=== PATIENT | female | born 1950 | race Caucasian/White ===

== ENCOUNTER 2023-02-04 09:45 | Outpatient (AMB) | payer MEDICARE, OTHER, SELFPAY ==
--- NOTE | 2023-02-04 09:50 | HO.NEPHOV ---
HPI HPI Comments History of Present Illness Details I had the privilege of seeing Cindy in follow-up of her mild CKD. She is on metformin for her diabetes mellitus. Her blood pressure has been close to goal. She really had minimal proteinuria in the past. She has no hypoglycemias. She denies any chest pain, shortness of breath, proximal nocturnal dyspnea, orthopnea or pedal edema . She has not had any medication changes lately. She has not had any renal stones lately. She avoids nonsteroidal anti-inflammatory medications. She has no orthostatic symptoms. She has been having increased frequency of micturition. Her serum potassium was 5.5 recently. She had no other systemic complaints at the time of this office visit. [facility] Medical History (Updated 02/04/23 @ 12:53 by Jg Ramírez MD) Calculus of kidney Chronic kidney disease, stage 3a Hypertension Surgical History (Updated 02/04/23 @ 10:05 by Estefany Varela MA) Hx of laparoscopic gastric banding History of ankle surgery History of knee replacement History of section History of elbow surgery History of knee surgery Social History (Updated 02/04/23 @ 10:02 by Estefany Varela MA) Alcohol intake: never Patient Tobacco Use Status: Never used Tobacco Vital Signs 02/04/23 09:54 Height 4 ft 11 in Weight 170 lb 4 oz BMI 34.4 BP 136/80 Blood Pressure Location Lt brachial Position Sitting Pulse 91 Pulse Source Pulse Oximeter Physical Exam Vital Signs: Last Vital Signs Pulse 91 02/04/23 09:54 BP 136/80 02/04/23 09:54 BMI result Body Mass Index 34.4 Const General: comfortable and no acute distress Orientation/consciousness: patient oriented x3 HEENT Head: Yes normocephalic Mouth: Normal oral and palatal mucosa present Eyes EOM: EOMs intact bilaterally Neck Neck: Yes supple Resp Auscultation: clear to auscultation bilaterally Cardio Jugular venous distension: no JVD Rate: regular rate GI Palpation (GI): Soft to palpation Auscultation: normal bowel sounds General: Yes no CVA tenderness Back/Spine/Pelvis Back: no CVA tenderness Skin General skin exam: no rashes or lesions noted Neuro General: patient oriented x3 and moves all extremities Extrem General: Yes no pedal edema Assessment & Plan Assessment & Plan (1) Chronic kidney disease, stage 3a: Code(s): N18.31 - Chronic kidney disease, stage 3a (2) Calculus of kidney: Code(s): N20.0 - Calculus of kidney (3) Hypertension: Code(s): I10 - Essential (primary) hypertension Qualifiers: Hypertension type: primary hypertension Qualified Code(s): I10 - Essential (primary) hypertension (4) UTI (urinary tract infection): Code(s): N39.0 - Urinary tract infection, site not specified (5) Hyperkalemia: Code(s): E87.5 - Hyperkalemia Plan Cindy has CKD stage 3. Her renal functions have been stable. Her serum potassium was 5.5 couple days ago. I asked her to keep a low-potassium diet. She is not on any RUDDY inhibitor, ARB or spironolactone. She is going to get her electrolytes repeated in a few weeks. Her blood pressure needs to be maintained at goal. Her blood sugars are acceptable. She avoids nonsteroidal anti-inflammatory medications and maintain good hydration. I have started her on levofloxacin 500 mg daily for 3 days. I will consider starting her on low-dose chlorthalidone which could potentially help with her hyperkalemia especially given history of renal calculus and hypertension. She should be on a low-sodium diet and continue lifestyle modification. All questions were answered. Time spent retrieving data, patient encounter and documentation 28 minutes. Follow-up given. Orders: Orders Creatinine Today I10 - Essential (primary) hypertension, N18.31 - Chronic kidney disease, stage 3a, N20.0 - Calculus of kidney Electrolytes Today I10 - Essential (primary) hypertension, N18.31 - Chronic kidney disease, stage 3a, N20.0 - Calculus of kidney Blood Urea Nitrogen Today I10 - Essential (primary) hypertension, N18.31 - Chronic kidney disease, stage 3a, N20.0 - Calculus of kidney Calcium Today I10 - Essential (primary) hypertension, N18.31 - Chronic kidney disease, stage 3a, N20.0 - Calculus of kidney Medications: New levofloxacin 500 mg PO DAILY 3 days 3 tabs 0RF Coding Level of Care Code Est Pt Level 4 (55864) Diagnoses Chronic kidney disease, stage 3a N18.31 Calculus of kidney N20.0 Primary hypertension I10 Hypertension type: primary hypertension UTI (urinary tract infection) N39.0 Hyperkalemia E87.5
[2023-02-04 09:54] VITALS: BP 136/80; PULSE 91; BMI 34.4
== END 2023-02-04 10:31 | disposition home or self-care (01) ==
PROVIDERS: PCP Internal Medicine; Visit Provider Internal Medicine Nephrology
DX: N18.31 Chronic kidney disease, stage 3a (principal); N20.0 Calculus of kidney; I10 Essential (primary) hypertension; N39.0 Urinary tract infection, site not specified; E87.5 Hyperkalemia
CPT/HCPCS: 99214

== ENCOUNTER → 2023-02-04 09:45 | Outpatient (BNVA) | payer MEDICARE, OTHER, SELFPAY | PROVIDERS: PCP Internal Medicine; Visit Provider Internal Medicine Nephrology | DX: I12.9 Hypertensive chronic kidney disease with stage 1 through stage 4 chronic kidney disease, or unspecified chronic kidney disease (principal); N18.31 Chronic kidney disease, stage 3a; N20.0 Calculus of kidney; N39.0 Urinary tract infection, site not specified; E78.5 Hyperlipidemia, unspecified | CPT/HCPCS: 99212 ==

== ENCOUNTER 2023-04-30 13:05 | Outpatient (REF) | payer MEDICARE, OTHER, SELFPAY ==
[2023-04-30 17:23] LABS: Appearance Urine Clear; Color Urine Yellow; Glucose Urine UA Negative (Negative); Leukocyte Esterase Urine Small (1+) (Negative); Nitrite Urine Negative (Negative); PH 5.5 (5.0-9.0); Specific Gravity - Urine 1.015 (1.005-1.025); UMIC TRIGGER UA YES; Urine Blood Negative (Negative); Urine Ketones Negative (Negative); Urine Protein Negative (Neg-Trace)
[2023-04-30 17:32] LABS: Anion Gap 12 (12-20); Blood Urea Nitrogen 18 mg/dL (9-16); Carbon Dioxide 27 mmol/L (22-29); Chloride 108 mmol/L (96-108); Estimated Glomerular Filt Rate 40; Potassium 4.7 mmol/L (3.3-5.1); Sodium 142 mmol/L (135-145)
[2023-04-30 18:03] LABS: Bacteria Urine 3+ (None Seen); Hyaline Casts Urine 0-2 /LPF (0-2); RBC Urine 0-2 /HPF (0-2); WBC Urine 21-50 /HPF (0-5)
[2023-04-30 19:39] LABS: Creatinine Urine 95.94 mg/dL; Total Protein Urine Random 10 mg/dL (<12)
== END 2023-04-30 13:06 | disposition home or self-care (01) ==
LOC: HO.HKASLDS 13:05
PROVIDERS: Visit Provider Internal Medicine Nephrology
DX: I12.9 Hypertensive chronic kidney disease with stage 1 through stage 4 chronic kidney disease, or unspecified chronic kidney disease (principal); N18.31 Chronic kidney disease, stage 3a; N20.0 Calculus of kidney
CPT/HCPCS: 36415; 80051; 81001; 82310; 82565; 82570; 84156; 84520

== ENCOUNTER 2023-05-06 09:37 | Outpatient (AMB) | payer MEDICARE, OTHER, SELFPAY ==
[2023-05-06 09:42] VITALS: BP 122/70; PULSE 79; O2SAT 98; BMI 34.6
--- NOTE | 2023-05-06 09:42 | HO.NEPHOV ---
HPI HPI Comments History of Present Illness Details I had the privilege of seeing Cindy in follow-up of her mild CKD. She is on metformin for her diabetes mellitus. Her blood pressure has been close to goal. She really had minimal proteinuria in the past. She has no hypoglycemias. She denies any chest pain, shortness of breath, proximal nocturnal dyspnea, orthopnea or pedal edema . She has not had any medication changes lately. She has not had any renal stones lately. She avoids nonsteroidal anti-inflammatory medications. She has no orthostatic symptoms. She had no other systemic complaints at the time of this office visit [facility] Medical History (Updated 05/06/23 @ 10:01 by Jg Ramírez MD) Calculus of kidney Chronic kidney disease, stage 3a Hypertension Surgical History (Updated 02/04/23 @ 10:05 by Estefany Varela MA) Hx of laparoscopic gastric banding History of ankle surgery History of knee replacement History of section History of elbow surgery History of knee surgery Social History (Updated 02/04/23 @ 10:02 by Estefany Varela MA) Alcohol intake: never Patient Tobacco Use Status: Never used Tobacco Vital Signs 05/06/23 09:42 Height 4 ft 11 in Weight 171 lb 8 oz BMI 34.6 BP 122/70 Blood Pressure Location Lt brachial Position Sitting Pulse 79 Pulse Source Pulse Oximeter Pulse Oximetry (%) 98 Oxygen Delivery Method Room Air Physical Exam Const General: comfortable and no acute distress Orientation/consciousness: patient oriented x3 HEENT Head: Yes normocephalic Mouth: Normal oral and palatal mucosa present Eyes EOM: EOMs intact bilaterally Neck Neck: Yes supple Resp Auscultation: clear to auscultation bilaterally Cardio Jugular venous distension: no JVD Rate: regular rate GI Palpation (GI): Soft to palpation Auscultation: normal bowel sounds General: Yes no CVA tenderness Back/Spine/Pelvis Back: no CVA tenderness Skin General skin exam: no rashes or lesions noted Neuro General: patient oriented x3 and moves all extremities Extrem General: Yes no pedal edema Assessment & Plan Assessment & Plan (1) Chronic kidney disease, stage 3a: Code(s): N18.31 - Chronic kidney disease, stage 3a (2) Hypertension: Code(s): I10 - Essential (primary) hypertension Qualifiers: Hypertension type: primary hypertension Qualified Code(s): I10 - Essential (primary) hypertension (3) Calculus of kidney: Code(s): N20.0 - Calculus of kidney (4) Diabetes: Code(s): E11.9 - Type 2 diabetes mellitus without complications Plan Cindy has CKD stage 3. Her renal functions have been stable. Her serum potassium is normal. I asked her to keep a low-potassium diet. She is not on any RUDDY inhibitor, ARB or spironolactone. Her blood pressure needs to be maintained at goal. Her blood sugars are acceptable. She avoids nonsteroidal anti-inflammatory medications and maintain good hydration. Her last A1c was 6.2. I will consider starting her on low-dose chlorthalidone along with low dose of ACEI at next visit which could potentially help with her hyperkalemia especially given history of renal calculus and hypertension & renal protection. She should be on a low-sodium diet and continue lifestyle modification. All questions were answered. Orders: Orders Creatinine Today I10 - Essential (primary) hypertension, N18.31 - Chronic kidney disease, stage 3a, N20.0 - Calculus of kidney Blood Urea Nitrogen Today I10 - Essential (primary) hypertension, N18.31 - Chronic kidney disease, stage 3a, N20.0 - Calculus of kidney Electrolytes Today I10 - Essential (primary) hypertension, N18.31 - Chronic kidney disease, stage 3a, N20.0 - Calculus of kidney Protein Creatinine Ratio, Ur Today I10 - Essential (primary) hypertension, N18.31 - Chronic kidney disease, stage 3a, N20.0 - Calculus of kidney Hemoglobin A1c Today E11.9 - Type 2 diabetes mellitus without complications, I10 - Essential (primary) hypertension, N18.31 - Chronic kidney disease, stage 3a, N20.0 - Calculus of kidney Coding Level of Care Code Est Pt Level 3 (05596) Diagnoses Chronic kidney disease, stage 3a N18.31 Primary hypertension I10 Hypertension type: primary hypertension Calculus of kidney N20.0 Diabetes E11.9 Results Reviewed Nephrology Results: Sodium 142 mmol/L (135-145) 04/30/23 Potassium 4.7 mmol/L (3.3-5.1) 04/30/23 Chloride 108 mmol/L (96-108) 04/30/23 Carbon Dioxide 27 mmol/L (22-29) 04/30/23 BUN 18 mg/dL (9-16) H 04/30/23 Creatinine 1.29 mg/dL (0.5-1.4) 04/30/23 Calcium 10.0 mg/dL (8.4-10.2) 04/30/23 Urine Protein Negative mg/dL (Neg-Trace) 04/30/23 Urine Creatinine 95.94 mg/dL 04/30/23 Protein/Creatinin Ratio 0.10 (<0.2) 04/30/23
== END 2023-05-06 10:08 | disposition home or self-care (01) ==
PROVIDERS: PCP Internal Medicine; Visit Provider Internal Medicine Nephrology
DX: N18.31 Chronic kidney disease, stage 3a (principal); I10 Essential (primary) hypertension; N20.0 Calculus of kidney; E11.9 Type 2 diabetes mellitus without complications
CPT/HCPCS: 99213

== ENCOUNTER → 2023-05-06 09:37 | Outpatient (BNVA) | payer MEDICARE, OTHER, SELFPAY | PROVIDERS: PCP Internal Medicine; Visit Provider Internal Medicine Nephrology | DX: E11.22 Type 2 diabetes mellitus with diabetic chronic kidney disease (principal); I12.9 Hypertensive chronic kidney disease with stage 1 through stage 4 chronic kidney disease, or unspecified chronic kidney disease; N18.31 Chronic kidney disease, stage 3a; N20.0 Calculus of kidney; Z79.84 Long term (current) use of oral hypoglycemic drugs | CPT/HCPCS: 99212 ==

== ENCOUNTER 2023-08-29 09:18 | Outpatient (REF) | payer MEDICARE, OTHER, SELFPAY ==
[2023-08-29 11:39] LABS: Estimated Average Glucose 128 mg/dL; Hemoglobin A1c % 6.1 % (<6.0)
[2023-08-29 12:15] LABS: Anion Gap 12 (12-20); Blood Urea Nitrogen 16 mg/dL (9-16); Carbon Dioxide 27 mmol/L (22-29); Chloride 107 mmol/L (96-108); Estimated Glomerular Filt Rate 43; Potassium 5.1 mmol/L (3.3-5.1); Sodium 141 mmol/L (135-145)
[2023-08-29 13:13] LABS: Appearance Urine Clear; Color Urine Yellow; Glucose Urine UA Negative (Negative); Leukocyte Esterase Urine Small (1+) (Negative); Nitrite Urine Negative (Negative); PH 5.5 (5.0-9.0); UMIC TRIGGER UA YES; Urine Blood Trace (Negative); Urine Ketones Negative (Negative); Urine Protein Negative (Neg-Trace)
[2023-08-29 13:18] LABS: Bacteria Urine None Seen (None Seen); Hyaline Casts Urine 0-2 /LPF (0-2); RBC Urine 0-2 /HPF (0-2)
[2023-08-29 13:50] LABS: Creatinine Urine 117.72 mg/dL; Protein/Creatinine Ratio, Ur 0.13 (<0.2); Total Protein Urine Random 15 mg/dL (<12)
== END 2023-08-29 09:19 | disposition home or self-care (01) ==
LOC: HO.HMGCLDS 09:18
PROVIDERS: PCP Internal Medicine; Visit Provider Internal Medicine Nephrology
DX: I12.9 Hypertensive chronic kidney disease with stage 1 through stage 4 chronic kidney disease, or unspecified chronic kidney disease (principal); E11.9 Type 2 diabetes mellitus without complications; N20.0 Calculus of kidney; N18.31 Chronic kidney disease, stage 3a
CPT/HCPCS: 36415; 80051; 81001; 82565; 82570; 83036; 84156; 84520

== ENCOUNTER 2023-09-02 09:48 | Outpatient (AMB) | payer MEDICARE, OTHER, SELFPAY ==
[2023-09-02 10:11] VITALS: BP 116/72; PULSE 75; O2SAT 98; BMI 34.0
--- NOTE | 2023-09-02 10:11 | HO.NEPHOV ---
Vital Signs 09/02/23 10:11 Height 4 ft 11 in Weight 168 lb 2 oz BMI 34.0 BP 116/72 Blood Pressure Location Lt brachial Position Sitting Pulse 75 Pulse Source Pulse Oximeter Pulse Oximetry (%) 98 Oxygen Delivery Method Room Air Intake Visit Reasons: 4 mon follow up/ Conf w/ Security Trainer Required: No Accompanied by: Self / Same As Patient Allergies No Known Allergies Allergy (Verified 09/02/23 10:14) HPI Comments Details: I had the privilege of seeing Cindy in follow-up of her mild CKD. She is on metformin for her diabetes mellitus. Her blood pressure has been close to goal. She really had minimal proteinuria in the past. She has no hypoglycemias. She denies any chest pain, shortness of breath, proximal nocturnal dyspnea, orthopnea or pedal edema . She has not had any medication changes lately. She has not had any renal stones lately. She avoids nonsteroidal anti-inflammatory medications. She has no orthostatic symptoms. She is under a lot of stress from her 's recent diagnosis of head and neck cancer( squamous cell ca). She had no other systemic complaints at the time of this office visit [facility] Medical History (Updated 05/06/23 @ 10:01 by Jg Ramírez MD) Calculus of kidney Chronic kidney disease, stage 3a Hypertension Surgical History Hx of laparoscopic gastric banding History of ankle surgery History of knee replacement History of section History of elbow surgery History of knee surgery Social History Alcohol intake: never Patient Tobacco Use Status: Never used Tobacco Physical Exam Vital Signs: Last Vital Signs Pulse 75 09/02/23 10:11 BP 116/72 09/02/23 10:11 Pulse Ox 98 09/02/23 10:11 Oxygen Delivery Method Room Air 09/02/23 10:11 BMI result Body Mass Index 34.0 Const General: comfortable and no acute distress Orientation/consciousness: patient oriented x3 HEENT Head: Yes normocephalic Mouth: Normal oral and palatal mucosa present Eyes EOM: EOMs intact bilaterally Neck Neck: Yes supple Resp Auscultation: clear to auscultation bilaterally Cardio Jugular venous distension: no JVD Rate: regular rate GI Palpation (GI): Soft to palpation Auscultation: normal bowel sounds General: Yes no CVA tenderness Back/Spine/Pelvis Back: no CVA tenderness Skin General skin exam: no rashes or lesions noted Neuro General: patient oriented x3 and moves all extremities Extrem General: Yes no pedal edema Results Reviewed Nephrology Results: Sodium 141 mmol/L (135-145) 08/29/23 Potassium 5.1 mmol/L (3.3-5.1) 08/29/23 Chloride 107 mmol/L (96-108) 08/29/23 Carbon Dioxide 27 mmol/L (22-29) 08/29/23 BUN 16 mg/dL (9-16) 08/29/23 Creatinine 1.21 mg/dL (0.5-1.4) 08/29/23 Calcium 10.0 mg/dL (8.4-10.2) 04/30/23 Urine Protein Negative mg/dL (Neg-Trace) 08/29/23 Urine Creatinine 117.72 mg/dL 08/29/23 Protein/Creatinin Ratio 0.13 (<0.2) 08/29/23 Assessment & Plan Assessment & Plan (1) Calculus of kidney: Code(s): N20.0 - Calculus of kidney Category: Medical (2) Chronic kidney disease, stage 3a: Code(s): N18.31 - Chronic kidney disease, stage 3a Category: Medical (3) Hypertension: Code(s): I10 - Essential (primary) hypertension Category: Medical Qualifiers: Hypertension type: primary hypertension Qualified Code(s): I10 - Essential (primary) hypertension Plan Cindy has CKD stage 3. Her renal functions have been stable. Her serum potassium is normal. I asked her to keep a low-potassium diet. She is not on any RUDDY inhibitor, ARB or spironolactone. Her blood pressure needs to be maintained at goal. Her blood sugars are acceptable. She avoids nonsteroidal anti-inflammatory medications and maintain good hydration. Her last A1c was 6.3. I did not make any medication changes today. She should be on a low-sodium diet and continue lifestyle modification. All questions were answered. Orders: Orders Blood Urea Nitrogen Today I10 - Essential (primary) hypertension, N18.31 - Chronic kidney disease, stage 3a, N20.0 - Calculus of kidney Electrolytes Today I10 - Essential (primary) hypertension, N18.31 - Chronic kidney disease, stage 3a, N20.0 - Calculus of kidney Calcium Today I10 - Essential (primary) hypertension, N18.31 - Chronic kidney disease, stage 3a, N20.0 - Calculus of kidney Creatinine Today I10 - Essential (primary) hypertension, N18.31 - Chronic kidney disease, stage 3a, N20.0 - Calculus of kidney Coding Level of Care Code Est Pt Level 4 (31680) Diagnoses Calculus of kidney N20.0 Chronic kidney disease, stage 3a N18.31 Primary hypertension I10 Hypertension type: primary hypertension
== END 2023-09-02 10:42 | disposition home or self-care (01) ==
PROVIDERS: PCP Internal Medicine; Visit Provider Internal Medicine Nephrology
DX: N20.0 Calculus of kidney (principal); N18.31 Chronic kidney disease, stage 3a; I10 Essential (primary) hypertension
CPT/HCPCS: 99214

== ENCOUNTER → 2023-09-02 09:48 | Outpatient (BNVA) | payer MEDICARE, OTHER, SELFPAY | PROVIDERS: PCP Internal Medicine; Visit Provider Internal Medicine Nephrology | DX: N20.0 Calculus of kidney (principal); I12.9 Hypertensive chronic kidney disease with stage 1 through stage 4 chronic kidney disease, or unspecified chronic kidney disease; N18.31 Chronic kidney disease, stage 3a | CPT/HCPCS: 99212 ==

== ENCOUNTER 2023-12-30 10:20 | Outpatient (REF) | payer MEDICARE, OTHER, SELFPAY ==
[2023-12-30 13:37] LABS: Appearance Urine Clear; Color Urine Yellow; Glucose Urine UA Negative (Negative); Leukocyte Esterase Urine Small (1+) (Negative); Nitrite Urine Positive (Negative); PH 5.5 (5.0-9.0); UMIC TRIGGER UA YES; Urine Blood Negative (Negative); Urine Ketones Negative (Negative); Urine Protein Trace mg/dL (Neg-Trace)
[2023-12-30 13:43] LABS: Bacteria Urine 4+ (None Seen); Hyaline Casts Urine 0-2 /LPF (0-2); RBC Urine 0-2 /HPF (0-2); WBC Urine 21-50 /HPF (0-5)
[2023-12-30 19:32] LABS: Anion Gap 14 (12-20); Blood Urea Nitrogen 15 mg/dL (9-16); Calcium 10.1 mg/dL (8.4-10.2); Carbon Dioxide 27 mmol/L (22-29); Chloride 106 mmol/L (96-108); Estimated Glomerular Filt Rate 41; Potassium 5.1 mmol/L (3.3-5.1); Sodium 142 mmol/L (135-145)
== END 2023-12-30 10:21 | disposition home or self-care (01) ==
LOC: HO.HKASLDS 10:20
PROVIDERS: Visit Provider Internal Medicine Nephrology
DX: N18.31 Chronic kidney disease, stage 3a (principal); N20.0 Calculus of kidney; I10 Essential (primary) hypertension
CPT/HCPCS: 36415; 80051; 81001; 82310; 82565; 84520

== ENCOUNTER 2024-01-06 10:04 | Outpatient (AMB) | payer MEDICARE, OTHER, SELFPAY ==
[2024-01-06 10:11] VITALS: BP 114/64; PULSE 69; O2SAT 98; BMI 32.8
--- NOTE | 2024-01-06 10:11 | HO.NEPHOV ---
Vital Signs 01/06/24 10:11 Height 4 ft 11 in Weight 162 lb 4 oz BMI 32.8 BP 114/64 Blood Pressure Location Lt brachial Position Sitting Pulse 69 Pulse Source Pulse Oximeter Pulse Oximetry (%) 98 Oxygen Delivery Method Room Air Intake Visit Reasons: 4 mon follow up-Conf Adjunct Sociology Professor Required: No Accompanied by: Self / Same As Patient Allergies No Known Allergies Allergy (Verified 01/06/24 10:13) HPI Comments Details: I had the privilege of seeing Cindy in follow-up of her mild CKD. She is grieving from her husbands passing. She is on metformin for her diabetes mellitus. Her blood pressure has been close to goal. She really had minimal proteinuria in the past. She has no hypoglycemias. She denies any chest pain, shortness of breath, proximal nocturnal dyspnea, orthopnea or pedal edema . She has not had any medication changes lately. She has not had any renal stones lately. She avoids nonsteroidal anti-inflammatory medications. She has no orthostatic symptoms. She had no other systemic complaints at the time of this office visit [facility] Medical History (Updated 05/06/23 @ 10:01 by Jg Ramírez MD) Calculus of kidney Chronic kidney disease, stage 3a Hypertension Surgical History Hx of laparoscopic gastric banding History of ankle surgery History of knee replacement History of section History of elbow surgery History of knee surgery Social History Alcohol intake: never Patient Tobacco Use Status: Never used Tobacco Review of Systems Const All systems reviewed & are unremarkable except as noted in HPI and below Physical Exam Vital Signs: Last Vital Signs Pulse 69 01/06/24 10:11 BP 114/64 01/06/24 10:11 Pulse Ox 98 01/06/24 10:11 Oxygen Delivery Method Room Air 01/06/24 10:11 BMI result Body Mass Index 32.8 Const General: comfortable and no acute distress Orientation/consciousness: patient oriented x3 HEENT Head: Yes normocephalic Mouth: Normal oral and palatal mucosa present Eyes EOM: EOMs intact bilaterally Neck Neck: Yes supple Resp Auscultation: clear to auscultation bilaterally Cardio Jugular venous distension: no JVD Rate: regular rate GI Palpation (GI): Soft to palpation Auscultation: normal bowel sounds General: Yes no CVA tenderness Back/Spine/Pelvis Back: no CVA tenderness Skin General skin exam: no rashes or lesions noted Neuro General: patient oriented x3 and moves all extremities Extrem General: Yes no pedal edema Results Reviewed Nephrology Results: Sodium 142 mmol/L (135-145) 12/30/23 Potassium 5.1 mmol/L (3.3-5.1) 12/30/23 Chloride 106 mmol/L (96-108) 12/30/23 Carbon Dioxide 27 mmol/L (22-29) 12/30/23 BUN 15 mg/dL (9-16) 12/30/23 Creatinine 1.28 mg/dL (0.5-1.4) 12/30/23 Calcium 10.1 mg/dL (8.4-10.2) 12/30/23 Urine Protein Trace mg/dL (Neg-Trace) 12/30/23 Urine Creatinine 117.72 mg/dL 08/29/23 Protein/Creatinin Ratio 0.13 (<0.2) 08/29/23 Assessment & Plan Assessment & Plan (1) Chronic kidney disease, stage 3a: Code(s): N18.31 - Chronic kidney disease, stage 3a Category: Medical (2) Hypertension: Code(s): I10 - Essential (primary) hypertension Category: Medical Qualifiers: Hypertension type: primary hypertension Qualified Code(s): I10 - Essential (primary) hypertension (3) Calculus of kidney: Code(s): N20.0 - Calculus of kidney Category: Medical Plan Cindy has CKD stage 3. Her renal functions have been stable. Her serum potassium is normal. I asked her to keep a low-potassium diet. She is not on any RUDDY inhibitor, ARB or spironolactone. Her blood pressure needs to be maintained at goal. Her blood sugars are acceptable. She avoids nonsteroidal anti-inflammatory medications and maintain good hydration. I did not make any medication changes today. She should be on a low-sodium diet and continue lifestyle modification. All questions were answered. Orders: Orders Creatinine 6 Months I10 - Essential (primary) hypertension, N18.31 - Chronic kidney disease, stage 3a Blood Urea Nitrogen 6 Months I10 - Essential (primary) hypertension, N18.31 - Chronic kidney disease, stage 3a Electrolytes 6 Months I10 - Essential (primary) hypertension, N18.31 - Chronic kidney disease, stage 3a Coding Level of Care Code Est Pt Level 4 (13908) Diagnoses Chronic kidney disease, stage 3a N18.31 Primary hypertension I10 Hypertension type: primary hypertension Calculus of kidney N20.0
== END 2024-01-06 10:54 | disposition home or self-care (01) ==
LOC: HO.HKAS 10:05
PROVIDERS: PCP Internal Medicine; Visit Provider Internal Medicine Nephrology
DX: N18.31 Chronic kidney disease, stage 3a (principal); I10 Essential (primary) hypertension; N20.0 Calculus of kidney
CPT/HCPCS: 99214

== ENCOUNTER → 2024-01-06 10:04 | Outpatient (BNVA) | payer MEDICARE, OTHER, SELFPAY | PROVIDERS: PCP Internal Medicine; Visit Provider Internal Medicine Nephrology | DX: I12.9 Hypertensive chronic kidney disease with stage 1 through stage 4 chronic kidney disease, or unspecified chronic kidney disease (principal); N18.31 Chronic kidney disease, stage 3a; N20.0 Calculus of kidney | CPT/HCPCS: 99212 ==

== ENCOUNTER 2024-06-30 10:30 | Outpatient (REF) | payer MEDICARE, SELFPAY ==
--- OUTSIDE RECORDS SUMMARY | 2024-06-30 12:25 | XMS_ITS | Clinical Summary ---
Author Organization [facility] Address [address] [place] [address] Care Team Providers Care Systems Project Manager Name Role Phone Moe Gao MD Primary Care Provider [phone] Allergies No known active allergies Medications Medication Sig Dispensed Refills Start Date End Date Status atorvastatin (LIPITOR) tablet 10 mg Take 1 tablet (10 mg total) by mouth daily. 0 04/27/2022 Active levothyroxine (SYNTHROID) tablet 100 mcg Take 1 tablet (100 mcg total) by mouth daily. 0 06/06/2022 Active metFORMIN (GLUCOPHAGE-XR) 750 MG 24 hr tablet Take 1 tablet (750 mg total) by mouth daily. 0 05/15/2022 Active Active Problems No known active problems Family History Medical History Relation Name Comments Cancer Mother Relation Name Status Comments Mother Social History Tobacco Use Types Packs/Day Years Used Date Smoking Tobacco: Never Smokeless Tobacco: Never Tobacco Cessation:Counseling Given: Not Answered Alcohol Use Standard Drinks/Week Comments Never 0 (1 standard drink = 0.6 oz pur e alcohol) Sex and Gender Information Value Date Recorded Sex Assigned at Female 04/26/2022 11:35 AM EST Gender Identity Not on file Sexual Orientation Not on file Job Start Date Occupation Industry Not on file Not on file Not on file Last Filed Vital Signs Vital Sign Reading Time Taken Comments Blood Pressure 128/61 07/19/2022 3:18 PM EDT Pulse 95 07/19/2022 3:18 PM EDT Temperature 37 ??C (98.6 ??F) 07/19/2022 3:18 PM EDT Respiratory Rate - - Oxygen Saturation 99% 07/19/2022 3:18 PM EDT Inhaled Oxygen Concentration - - Weight 77.7 kg (171 lb 6.4 oz) 07/19/2022 3:18 P M EDT Height 149.9 cm (4' 11 ) 07/19/2022 3:18 PM EDT Body Mass Index 34.62 07/19/2022 3:18 PM EDT Plan of Treatment Health Maintenance Due Date Last Done Comments Hepatitis C Screening 1950 COVID-19 Vaccine (#1) 1948 Depression Screening 1960 Preventative Health Evaluation 1966 Shingrix-Zoster Vaccine (1 of 2) 1998 Fall Risk Assessment 2013 Osteoporosis Screening (DEXA Scan) 2013 Pneumococcal Vaccine (1 of 1 - PCV) 2013 DTap / Tdap / Td (2 - Td or Tdap) 10/19/2021 012 RSV Adult > 60+ Yrs or Pregn ant (1 - 1-dose 75+ series) 2023 Influenza Vaccine (#1) 2023 Hepatitis B Vaccines Aged Out No long er eligible based on patient's age to complete this topic RSV Ped < 20 months Aged Out No longe r eligible based on patient's age to complete this topic Care Teams Systems Project Manager Relationship Specialty Start Date End Date Moe Gao MD [address] [facility] [address] [place] [address] PCP - General Internal Medicine 04/26/22
--- OUTSIDE RECORDS SUMMARY | 2024-06-30 12:25 | XMS_ITS | Encounter Summary ---
Author Name [facility] [place] Organization [facility] [place] [place] Address [address] [place] [id number] Selected Encounter This section includes the information on record at [place] for the Encounter. Date/Time Encounter Type Encounter Description Reason Pro vider Source Oct 22, 2023 02:07 PM Outpatient Encounter ADMIN PAT ACTIVTIES (MASNONCT) IHE Encounter Template Text not used by VA Encounter Notes: All associated encounter notes This section contains the clinical notes associated to the Encounter. Date/Time Encounter Note(s) Provider Source Oct 22, 2023 02:08 PM CAREGIVER CERTIFIC ATE: LOCAL TITLE: [facility] ADMINISTRATIVE NOTE STANDARD TITLE: CAREGIVER CERTIFICATE DATE OF NOTE: OCT 22, 2023@14:08 ENTRY DATE: OCT 22, 2023@14:08:04 AUTHOR: ALEXANDRIA BADILLO COSIGNER: URGENCY: STATUS: COMPLETED Mechanical Engineering Officer received a call from this 's daughter/secondary caregiver listed in the CSP PCAFC application. Mechanical Engineering Officer introduced herself and discussed the next step required with their CSP PCAFC application. Mechanical Engineering Officer noted already scheduled an appointment with vet and primary caregiver/'s on 10/24/23 at 1pm via telephone to complete the CSP PCAFC and caregiver assessment. [place]'s daughter/secondary caregiver agreed to be present during this assessment and noted she can facilitate [facility] V[facility]. Mechanical Engineering Officer agreed to send her the [facility] email invitation for the above mentioned appt to her provided email [email or web address]. Mechanical Engineering Officer also forwarded this 's daughter/secondary caregiver the instructions for EFT direct deposit to this 's daughter/caregiver. She agreed to provide her mother/'s primary caregiver support with this EFT direct deposit process. /florina/ ALEXANDRIA CORBETT LCSW CAREGIVER SUPPORT GROUNDS AND NURSERY SPECIALIST Signed: 10/22/2023 14:08 ALEXANDRIA BADILLO [facility]
--- OUTSIDE RECORDS SUMMARY | 2024-06-30 12:25 | XMS_ITS | Continuity of Care Document ---
Author Name [facility] Organization [facility] Care Team Providers Care Pension Fund Manager Name Role Phone [facility] Unavailable Unavailable Problems Combined list of problems [...] HCS HC PRO PHONE CALL 5-10 MIN [id number] Diagnos is: ICD-10- CM Z71.0 Prsn encntr hlth serv to consult on behalf of another person MARGI BADILLO TH E 10/21 [facility] Encounter [id number] 10/21 [facility] Encounter [id number] 10/22 [facility] [place]REAS SESSMENT [id number] Diagnos is: ICD-10- CM Z71.0 Prsn encntr hlth serv to consult on behalf of another person JUSTINORU TH E 10/23 [facility] [place] [facility] Outpatient Encounter [id number] 11/03 [facility]
--- OUTSIDE RECORDS SUMMARY | 2024-06-30 12:25 | XMS_ITS ---
Author Name [facility] [place] Organization [facility] [place] Address [address] [place], [place] [id number] Selected Encounter This section includes the information on record at [place] for the Encounter. Date/Time Encounter Type Encounter Description Reason Pro vider Source Oct 23, 2023 07:20 AM Outpatient Encounter ADMIN PAT ACTIVTIES (MASNONCT) IHE Encounter Template Text not used by VA Encounter Notes: All associated encounter notes This section contains the clinical notes associated to the Encounter. Date/Time Encounter Note(s) Provider Source Oct 23, 2023 07:20 AM CAREGIVER CERTIFIC ATE: LOCAL TITLE: CSP ADMINISTRATIVE NOTE STANDARD TITLE: CAREGIVER CERTIFICATE DATE OF NOTE: OCT 23, 2023@07:20 ENTRY DATE: OCT 23, 2023@11:09:33 AUTHOR: ALEXANDRIA BADILLO EXP COSIGNER: URGENCY: STATUS: COMPLETED Occupational Therapist'S Assistant had email communication with secondary caregiver/'s daughter. She reviewed her contracted COVID therefore she can not be present with and his /primary caregiver during the CSP PCAFC and Caregivers' assessment. Occupational Therapist'S Assistant and secondary caregiver/'s daughter agreed on 10/24/23 production underwriter will meet with her at 12pm via [facility] for a CSP PCAFC secondary caregiver assessment and production underwriter will contact this and via phone at 1pm to complete a CSP PCAFC and caregiver assessment. /florina/ ALEXANDRIA CORBETT LCSW CAREGIVER SUPPORT MANAGED CARE MANAGER Signed: 10/23/2023 11:12 ALEXANDRIA BADILLO [place] [facility] [place] [facility]
--- OUTSIDE RECORDS SUMMARY | 2024-06-30 12:25 | XMS_ITS | Clinical Summary ---
Author Organization [facility] Address [address] [facility] [address] [place] [address] Phone Care Team Providers Care X Ray Inspector Name Role Phone Moe Gao MD Primary Care Provider Allergies No known active allergies Medications fluticasone-salm eterol (ADVAIR DISKUS) 250-50 MCG/DOSE diskus inhaler Active metFORMIN XR (GLUCOPHAGE-XR) 750 MG 24 hr tablet Take 750 mg by mouth 1 (one) time each day 02/22/2020 Active aspirin (ST SIMON) 81 MG EC tablet Take 81 mg by mouth 1 (one) time each day Active cholecalciferol (VITAMIN D-3 SUPER STRENGTH) 50 MCG (2000 UT) tablet Take 2,000 Units by mouth 1 (one) time each day Active atorvastatin (LIPITOR) 10 MG tablet Take 10 mg by mouth 1 (one) time each day 01/28/2022 Active levothyroxine (SYNTHROID, LEVOTHROID) 100 MCG tablet Take 100 mcg by mouth 1 (one) time each day 06/06/2022 Active Active Problems Problem Noted Date Diagnosed Date Degenerative lumbar spinal stenosis 02/04/2022 Stage 3a chronic kidney disease 06/14/2021 Hypertension 11/16/2020 Acute nontraumatic kidney injury 05/06/2020 Chronic kidney disease stage 2 05/06/2020 Hypercalcemia 05/06/2020 Renal function tests outside reference range Renal stone 05/06/2020 Immunizations Immunization Administration Dates Next Due Tdap 10/20/2011 Family History Medical History Relation Comments Cancer Father pancreatic cance r Diabetes Father Heart disease Father pacemaker Hypertension Father Cancer Mother breast cancer Heart disease Sibling Relation Status Comments Father Mother Sibling Social History Tobacco Use Types Packs/Day Years Used Date Smoking Tobacco: Never Smokeless Tobacco: Never Tobacco Cessation:Counseling Given: Not Answered Alcohol Use Standard Drinks/Week Comments No 0 (1 standard drink = 0.6 oz pur e alcohol) Comments Unknown Sex and Gender Information Value Date Recorded Sex Assigned at Not on file Legal Sex Female 4:40 PM EST Gender Identity Not on file Sexual Orientation Not on file Last Filed Vital Signs Vital Sign Reading Time Taken Comments Blood Pressure 130/70 08/06/2022 1:13 PM EDT Pulse 91 08/06/2022 1:13 PM EDT Temperature - - Respiratory Rate - - Oxygen Saturation 98% 11/16/2020 3:12 PM EDT Inhaled Oxygen Concentration - - Weight 77.5 kg (170 lb 12.8 oz) 08/06/2022 1:13 PM EDT Height 149.9 cm (4' 11 ) 07/26/2019 12: 00 PM EDT Body Mass Index 34.5 07/26/2019 12:00 PM EDT Plan of Treatment Health Maintenance Due Date Last Done Comments Pneumococcal Vaccine: 50+ Ye ars (1 of 2 - PCV) 1969 Influenza Vaccine (Season Ended) 2024 Hepatitis B Vaccine Aged Out No longe r eligible based on patient's age to complete this topic Insurance Medicare [facility] Medicare Care Teams X Ray Inspector Relationship Specialty Start Date End Date Moe Gao MD [address] [place] [address] PCP - General 03/20/20
--- OUTSIDE RECORDS SUMMARY | 2024-06-30 12:25 | XMS_ITS ---
Author Name [facility] [place] Organization [facility] [place] [place] Address [address] [place] [address] Selected Encounter This section includes the information on record at [place] for the Encounter. Date/Time Encounter Type Encounter Description Reason Pro vider Source Nov 04, 2023 01:45 PM Outpatient Encounter ADMIN PAT ACTIVTIES (MASNONCT) IHE Encounter Template Text not used by VA Encounter Notes: All associated encounter notes This section contains the clinical notes associated to the Encounter. Date/Time Encounter Note(s) Provider Source Nov 04, 2023 01:45 PM CAREGIVER CERTIFIC ATE: LOCAL TITLE: CSP DENIAL NOTE STANDARD TITLE: CAREGIVER CERTIFICATE DATE OF NOTE: NOV 04, 2023@13:45 ENTRY DATE: NOV 04, 2023@13:48:04 AUTHOR: ALEXANDRIA BADILLO COSIGNER: URGENCY: STATUS: COMPLETED CSP DENIAL NOTE Has ADDENDA Caregiver Support Program Denial Note The individual being denied from the Program of Comprehensive Assistance for Family Caregivers is the Primary Family Caregiver applicant: CINDY HALL Second Family Caregiver applicant: Virginia Kearney Name of [place]: Bryson Hall Reason(s) for denial: - [place] Denial date: 11/03/2023 Staff provided/attempted verbal notification of denial on: 11/03/2023 Notification letter was mailed on: 11/04/2023 [facility] staff provided the following document(s): - [facility] Seay Contact Information - VA Caregiver Support Program PCAFC Appeal FAQs - [place] Form 10-305 Your Rights to Seek Further Review of PCAFC Decisions [facility] staff provided information on the following resources and supports: - Other VA Services: [facility] Outbound Sales Professional Services [phone] ext [phone] [employer] Grief and Support - [email or web address]://www.caredimensions .org/grief- support/index.cfm [facility] [address] [place] [address] Nica Coronado, Bereavement Counselor w# [phone] c# /florina/ ALEXANDRIA DONAHUE SPORT SHOE SPIKE ASSEMBLER CAREGIVER SUPPORT ENDOCRINOLOGY PHYSICIAN Signed: 11/04/2023 13:51 11/04/2023 ADDENDUM STATUS: COMPLETED Cloth Shrinking Tester mailed caregivers (primary and secondary) as well as 's authorized open claims representative the below mentioned letter. SENT REGULAR MAIL November 04, 2023 CINDY HALL [address], [place] [address] Dear Mrs. Hall: Thank you for your interest in the Program of Comprehensive Assistance for Family Caregivers (PCAFC). The [place] Form 10-10CG, Application for the Program of Comprehensive Assistance for Family Caregivers, you submitted was received by [place] on 10/15/2023. This application identified the following individuals as applying for PCAFC: Applicant: Bryson Hall Primary Family Caregiver Applicant: Cindy Hall Secondary Family Caregiver Applicant: Aleah Porter [place] has been notified of the of [place]. We are saddened to hear of your loss and would like to thank you for the dedicated care and support you provided. We want to express our sincere condolences, and let you know we are thinking of you during this challenging time. WHAT WE DECIDED Due to the of Frank, the evaluation of PCAFC eligibility for each PCAFC applicant is discontinued, and the PCAFC application must be denied. EVIDENCE WE CONSIDERED * [place] Form 10-10CG, Application for the Program of Comprehensive Assistance for Family Caregivers, received by [place] on 10/15/2023. * Cindy Hall's (/primary caregiver) telephone conversation with MOLLY Erazo, CSP PCAFC Coordinator confirming of passing on 11/03/2023. APPLICABLE LAWS AND REGULATIONS The following is a list of the legal and regulatory requirements that may be applicable to the decision being issued. Note: Title 38 of the United States Code (U.S.C.) contains the statues governing VA and Veterans' benefits. Title 38 of the Code of Federal Regulations (C.F.R.) contains the regulations of the Department of Veterans Affairs implementing those statues. The symbol ? means a section within the statue or regulation. Authorities Specific to the Program of Comprehensive Assistance for Family Caregivers * Caregivers and Veterans [facility] Act of 2009, Pub. L. No. 111-163, ?? 101-104, 124 Stat. 1130, 1132-40 * Portillo Tilley III, Darrell Mathew, and Dominic De Leon [place] Maintaining Internal Systems and Strengthening Integrated Outside Networks Act of 2018 (VA MISSION Act of 2018), Pub. L. No. 115-182, Caring for Our Veterans Act of 2017, ?? 161-163, 132 Stat. 1393, 1438-43 * Transparency and Effective Accountability Measures for [place] Caregivers Act (TEAM [place] Caregivers Act), Pub. L. No. 116?278, 134 Stat. 3373 * 38 U.S.C. ? 1720G, Assistance and support services for caregivers * 38 C.F.R. Part 71, Caregivers Benefits and Certain Medical Benefits Offered to Family Members of Veterans * [employer] vs. [place] of Veterans Affairs, 29 F.4th 1320 (Fed. Cir. 2021). On June 01, 2021, the United [place] Court of Appeals for the Federal Circuit struck down VA's definition of need for supervision, protection, or instruction in 38 C.F.R. ? 71.15. As a result, effective June 01, 2021, [place] is required to apply 38 U.S.C. 1720G(a)(2)(C) (ii) and (iii) in place of need for supervision, protection, or instruction where that term is used in 38 C.F.R. Part 71. EXPLANATION OF THE DECISION BEING ISSUED TO YOU (Elements leading to the denial) [facility] eligibility requirements can be found in 38 U.S.C. 1720G, Assistance and Support Services for Caregivers, and in 38 CFR Part 71, Caregivers Benefits and Certain Medical Benefits Offered to Family Members of Veterans. To be eligible for approval and designation of a Family Caregiver, individuals must meet criteria set forth in 38 CFR 71.20. In addition, individuals who apply to be Family Caregivers must complete all necessary eligibility evaluations (along with the or servicemember), education and training, and the initial home-care assessment (along with the or servicemember) (38 CFR 71.25(a)(2)(ii)). Unfortunately, all necessary eligibility evaluations were not completed prior to the [place]'s ; therefore, PCAFC eligibility cannot be determined and PCAFC benefits are not able to be granted. HOW TO OBTAIN OR ACCESS INFORMATION USED IN MAKING THIS DECISION Veterans and caregivers may request access to evidence we used to make our decision. If you utilize [employer], you may be able to access the information in your electronic health records (EHR) that was used in making this determination, through [employer]. Alternatively, you may request information identified in the Evidence We Considered section of this notice, by submitting a signed and completed VA Form 10-5345a, Individuals' Request for a Copy of Their Own Health Information, to the Electric Motor Repair Supervisor at your local [place] medical facility. VA Form 10-5345a can be found at https://www.mt.gov/vaforms /medical/pdf/[facility]%20Form%20 10-5345a%20Fill- revision.pdf. If you have an authorized open claims representative acting on your behalf, documentation of this authority using VA Form 21-22, Appointment of [place] Service Organization as Claimant's Gambreler, or VA Form 21-22a, Appointment of Individual as Claimant's Gambreler, must accompany the request for information. These and other VA forms are available at https://www.mt.gov/find-fo juan j/. WHAT TO DO IF YOU DISAGREE WITH THE DECISION If you disagree with this decision, several options are available to you. These options are described in the enclosed VA Form 10-305, Your Rights to Seek Further Review of Program of Comprehensive Assistance for Family Caregivers (PCAFC) Decisions. For information on the [facility] Clinical Appeals process for PCAFC decisions, please refer to the enclosed [facility] Clinical Review FAQ. WE ARE HERE TO SUPPORT YOU While you are not eligible for PCAFC at this time, you may qualify for other VA benefits, such as Dependency Indemnity Compensation (DIC), or burial benefits. To learn more, visit https://www.va.gov/family- member-benefits/. You may also be eligible for bereavement counseling either through the VA or the community. Please let us know if this is something you would like to pursue. Additionally, we encourage you to consider the following local resources: [facility] Outbound Sales Professional Services [phone] ext [phone] [employer] Grief and Support ? https://www.caredimensions .org/grief- support/index.cfm [facility] ? [facility] [address] [place] [address] Nica Coronado, Bereavement Counselor w# [phone] c# We are thinking of you during this challenging time. On behalf of a grateful nation and the Caregiver Support Program, thank you for your dedication to Bill. IF YOU HAVE QUESTIONS We are here for you. Please contact us if you have any questions about this letter or if there is anything we can do to support you. Please refer to the enclosed document titled Seay Contacts for ways to contact us or visit the Caregiver Support Program's website at www.caregiver.va.gov. Sincerely, Alexandria Donahue LCSW Caregiver Support Instructional Media Services Technician Enclosures: * [facility] Seay Contact Sheet * [place] Form 10-292, Your Rights to Seek Further Review of Program of Comprehensive Assistance for Family Caregivers (PCAFC) Decisions. * [facility] Clinical Review FAQ cc: Aleah Porter, [address] [place] [address] cc: [facility], [address], [address], [place] [id number] /florina/ ALEXANDRIA DONAHUE LCSW CAREGIVER SUPPORT ENDOCRINOLOGY PHYSICIAN Signed: 11/04/2023 14:14 ALEXANDRIA BADILLO [facility]
[2024-06-30 18:09] LABS: Anion Gap 14 (12-20); Blood Urea Nitrogen 19 mg/dL (9-16); Carbon Dioxide 24 mmol/L (22-29); Chloride 108 mmol/L (96-108); Estimated Glomerular Filt Rate 42; Potassium 5.4 mmol/L (3.3-5.1); Sodium 141 mmol/L (135-145)
== END 2024-06-30 10:31 | disposition home or self-care (01) ==
LOC: HO.HKASLDS 10:30
PROVIDERS: Visit Provider Internal Medicine Nephrology
DX: N18.31 Chronic kidney disease, stage 3a (principal); I10 Essential (primary) hypertension
CPT/HCPCS: 36415; 80051; 82565; 84520

== ENCOUNTER 2024-07-06 10:28 | Outpatient (AMB) | payer MEDICARE, OTHER, SELFPAY ==
--- NOTE | 2024-07-06 10:31 | HO.NEPHOV ---
Vital Signs 07/06/24 10:34 Height 4 ft 11 in Weight 167 lb 6 oz BMI 33.8 BP 120/60 Blood Pressure Location Lt brachial Position Sitting Pulse 75 Pulse Source Pulse Oximeter Pulse Oximetry (%) 99 Oxygen Delivery Method Room Air Intake Visit Reasons: 4 mon follow up-[facility] Logistics Supply Officer Required: No Accompanied by: Self / Same As Patient Allergies No Known Allergies Allergy (Verified 07/06/24 10:33) HPI Comments Details: Cindy was seen in follow-up of her mild CKD. She is grieving from her husbands passing. She is on metformin for her diabetes mellitus. Her blood pressure has been close to goal. She really had minimal proteinuria in the past. She has no hypoglycemias. She denies any chest pain, shortness of breath, proximal nocturnal dyspnea, orthopnea or pedal edema . She has not had any medication changes lately. She has not had any renal stones lately. She avoids nonsteroidal anti-inflammatory medications. She has no orthostatic symptoms. She had no other systemic complaints at the time of this office visit COUNTS INCLUDE [facility] BEDS AT THE [facility] Medical History (Updated 05/06/23 @ 10:01 by Jg Ramírez MD) Calculus of kidney Chronic kidney disease, stage 3a Hypertension Surgical History Hx of laparoscopic gastric banding History of ankle surgery History of knee replacement History of section History of elbow surgery History of knee surgery Social History Alcohol intake: never Patient Tobacco Use Status: Never used Tobacco Review of Systems Const All systems reviewed & are unremarkable except as noted in HPI and below Physical Exam Vital Signs: Last Vital Signs Pulse 75 07/06/24 10:34 BP 120/60 07/06/24 10:34 Pulse Ox 99 07/06/24 10:34 Oxygen Delivery Method Room Air 07/06/24 10:34 BMI result Body Mass Index 33.8 Const General: comfortable and no acute distress Orientation/consciousness: patient oriented x3 HEENT Head: Yes normocephalic Mouth: Normal oral and palatal mucosa present Eyes EOM: EOMs intact bilaterally Neck Neck: Yes supple Resp Auscultation: clear to auscultation bilaterally Cardio Jugular venous distension: no JVD Rate: regular rate GI Palpation (GI): Soft to palpation Auscultation: normal bowel sounds General: Yes no CVA tenderness Back/Spine/Pelvis Back: no CVA tenderness Skin General skin exam: no rashes or lesions noted Neuro General: patient oriented x3 and moves all extremities Extrem General: Yes no pedal edema Results Reviewed Nephrology Results: Sodium 141 mmol/L (135-145) 06/30/24 Potassium 5.4 mmol/L (3.3-5.1) H 06/30/24 Chloride 108 mmol/L (96-108) 06/30/24 Carbon Dioxide 24 mmol/L (22-29) 06/30/24 BUN 19 mg/dL (9-16) H 06/30/24 Creatinine 1.25 mg/dL (0.5-1.4) 06/30/24 Calcium 10.1 mg/dL (8.4-10.2) 12/30/23 Urine Protein Trace mg/dL (Neg-Trace) 12/30/23 Urine Creatinine 117.72 mg/dL 08/29/23 Protein/Creatinin Ratio 0.13 (<0.2) 08/29/23 Assessment & Plan Assessment & Plan (1) Hyperkalemia: Code(s): E87.5 - Hyperkalemia Category: Medical (2) Calculus of kidney: Code(s): N20.0 - Calculus of kidney Category: Medical (3) Chronic kidney disease, stage 3a: Code(s): N18.31 - Chronic kidney disease, stage 3a Category: Medical (4) Hypertension: Code(s): I10 - Essential (primary) hypertension Category: Medical Qualifiers: Hypertension type: primary hypertension Qualified Code(s): I10 - Essential (primary) hypertension Plan Cindy has CKD stage 3. Her renal functions have been stable. Her serum potassium is high normal. I asked her to keep a low-potassium diet. She is not on any RUDDY inhibitor, ARB or spironolactone. Her blood pressure needs to be maintained at goal. Her blood sugars are acceptable. She avoids nonsteroidal anti-inflammatory medications and maintain good hydration. I did not make any medication changes today. She is going to repeat K in 3 M. If K goes up, I shall initiate her on K lowering medication. She should be on a low-sodium/K diet and continue lifestyle modification. All questions were answered. Orders: Orders Electrolytes 8 Months E87.5 - Hyperkalemia, I10 - Essential (primary) hypertension, N18.31 - Chronic kidney disease, stage 3a, N20.0 - Calculus of kidney Electrolytes 3 Months E87.5 - Hyperkalemia Blood Urea Nitrogen 8 Months E87.5 - Hyperkalemia, I10 - Essential (primary) hypertension, N18.31 - Chronic kidney disease, stage 3a, N20.0 - Calculus of kidney Creatinine 8 Months E87.5 - Hyperkalemia, I10 - Essential (primary) hypertension, N18.31 - Chronic kidney disease, stage 3a, N20.0 - Calculus of kidney Coding Level of Care Code Est Pt Level 4 (94312) Diagnoses Hyperkalemia E87.5 Calculus of kidney N20.0 Chronic kidney disease, stage 3a N18.31 Primary hypertension I10 Hypertension type: primary hypertension
[2024-07-06 10:34] VITALS: BP 120/60; PULSE 75; O2SAT 99; BMI 33.8
--- OUTSIDE RECORDS SUMMARY | 2024-07-06 12:06 | XMS_ITS | Clinical Summary ---
Author Organization [facility] Address [address] [facility] [address] [place] [address] Phone Care Team Providers Care Ecommerce Merchandising Manager Name Role Phone Moe Gao MD Primary Care Provider [phone] Allergies No known active allergies Medications fluticasone-salm [...] age to complete this topic Insurance Medicare [facility] [employer] Medicare Care Teams Ecommerce Merchandising Manager Relationship Specialty Start Date End Date Moe Gao MD [address] [place] [address] PCP - General 03/20/20
--- OUTSIDE RECORDS SUMMARY | 2024-07-06 12:06 | XMS_ITS | Clinical Summary ---
Author Organization [facility] Address [address] [place] [address] Care Team Providers Care Quality Analyst Name Role Phone Moe Gao MD Primary Care Provider [phone] Allergies No known active allergies Medications Medication [...] age to complete this topic Care Teams Quality Analyst Relationship Specialty Start Date End Date Moe Gao MD [address] [facility] [address] [place] [address] PCP - General Internal Medicine 04/26/22
--- OUTSIDE RECORDS SUMMARY | 2024-07-06 12:06 | XMS_ITS | Continuity of Care Document ---
Author Name [facility] Organization [facility] Care Team Providers Care Mattress Finisher Name Role Phone [facility] Unavailable Unavailable Problems Combined list of problems [...] HCS HC PRO PHONE CALL 5-10 MIN [id number] [phone] Diagnos is: ICD-10- CM Z71.0 Prsn encntr hlth serv to consult on behalf of another person MARGI BADILLO TH E 10/21 [facility] En[facility] [id number] 10/21 [facility] [id number] 10/22 [facility] ASS[facility]/REAS SESSMENT [id number] Diagnos is: ICD-10- CM Z71.0 Prsn encntr hlth serv to consult on behalf of another person JUSTINORU TH E 10/23 [facility] Outpatient Encounter [id number] 11/03 [facility]
== END 2024-07-06 11:02 | disposition home or self-care (01) ==
LOC: HO.HKAS 10:29
PROVIDERS: PCP Internal Medicine; Visit Provider Internal Medicine Nephrology
DX: E87.5 Hyperkalemia (principal); N20.0 Calculus of kidney; N18.31 Chronic kidney disease, stage 3a; I10 Essential (primary) hypertension
CPT/HCPCS: 99214

== ENCOUNTER → 2024-07-06 10:28 | Outpatient (BNVA) | payer MEDICARE, SELFPAY | PROVIDERS: PCP Internal Medicine; Visit Provider Internal Medicine Nephrology | DX: I12.9 Hypertensive chronic kidney disease with stage 1 through stage 4 chronic kidney disease, or unspecified chronic kidney disease (principal); N18.31 Chronic kidney disease, stage 3a; N20.0 Calculus of kidney; E87.5 Hyperkalemia | CPT/HCPCS: 99212 ==

== ENCOUNTER 2024-09-28 11:37 | Outpatient (REF) | payer MEDICARE, OTHER, SELFPAY ==
--- OUTSIDE RECORDS SUMMARY | 2024-09-28 12:53 | XMS_ITS | Clinical Summary ---
Author Organization [facility] Address [address] [facility] [address] [place] [address] Phone Care Team Providers Care Liner Inserter Name Role Phone Moe Gao MD Primary [...] of 2 - PCV) 1967 Influenza Vaccine (#1) 2024 Hepatitis B Vaccine Aged Out No longe r eligible based on patient's age to complete this topic Insurance Medicare [facility] Medicare Care Teams Liner Inserter Relationship Specialty Start Date End Date Moe Gao MD [address] [place] [address] PCP - General 03/20/20
--- OUTSIDE RECORDS SUMMARY | 2024-09-28 12:53 | XMS_ITS | Clinical Summary ---
Author Organization [facility] Address [address] [place] [address] Care Team Providers Care Nursing Home Assistant Administrator Name Role Phone Moe Gao MD Primary Care Provider [phone] Allergies No known active allergies Medications Medication [...] 95 07/19/2022 3:18 PM EDT Temperature 37 C (98.6 F) 07/19/2022 3:18 PM EDT Respiratory Rate - [...] 1-dose 75+ series) 2023 Influenza Vaccine (#1) 2024 Hepatitis B Vaccines Aged Out No long er eligible based on patient's age to complete this topic RSV Ped < 20 months Aged Out No longe r eligible based on patient's age to complete this topic Care Teams Nursing Home Assistant Administrator Relationship Specialty Start Date End Date Moe Gao MD [address] [facility] [address] [place] [address] PCP - General Internal Medicine 04/26/22
[2024-09-28 18:27] LABS: Anion Gap 12 (12-20); Carbon Dioxide 27 mmol/L (22-29); Chloride 107 mmol/L (96-108); Potassium 5.5 mmol/L (3.3-5.1); Sodium 140 mmol/L (135-145)
== END 2024-09-28 11:38 | disposition home or self-care (01) ==
LOC: HO.HKASLDS 11:37
PROVIDERS: Visit Provider Internal Medicine Nephrology
DX: E87.5 Hyperkalemia (principal)
CPT/HCPCS: 36415; 80051

== ENCOUNTER 2024-11-04 10:38 | Outpatient (REF) | payer MEDICARE, OTHER, SELFPAY ==
--- OUTSIDE RECORDS SUMMARY | 2023-11-04 09:45 | XMS_ITS | Continuity of Care Document ---
Author Name [facility] Organization [facility] Care Team Providers Care Coach Cleaner Name Role Phone [facility] Unavailable Unavailable Problems Combined list of problems from Department of Defense and Veterans Affairs facilities. It does not include entries that were removed or entered in error. Problem Status Onset Date Problem Type Date of Resolution Comments Source Diagnosis: ICD-10-CM Z71.0 Prsn encntr hlth serv to consult on behalf of another person Active Diagnosis [facility] Encounters Combined list of: 1) Encounters from Department of Veterans Affairs facilities going backup to the last 18 months, not all VA inpatient encounters are included; 2) Encounters from the Department of Defense facilities going backup to 280 months. Location Location Details Encounter Type Encounter Number Reason For Visit Attending Provider ADM Date DC Date Status Disposition Source [facility] HC PRO PHONE CALL 5-10 MIN [id number] Diagnos is: ICD-10- CM Z71.0 Prsn encntr hlth serv to consult on behalf of another person MARGI BADILLO TH E 10/21 [facility] Outpatient [facility]counter [id number] 10/21 [facility] Out[facility]counter [id number] 10/22 [facility] SESS[facility] [id number] Diagnos is: ICD-10- CM Z71.0 Prsn encntr hlth serv to consult on behalf of another person JUSTINORU TH E 10/23 [facility] Outpatient Encounter [id number] 11/03 [facility]
--- OUTSIDE RECORDS SUMMARY | 2024-11-04 12:03 | XMS_ITS | Clinical Summary ---
Author Organization [facility] Address [address] [place] [address] Phone Care Team Providers Care Downstream Biomanufacturing Technician Name Role Phone Patrick Allan MD Primary Care Provider [phone] Encounters Date Type Department Care Team Description 09/27/2024 8:31 AM EDT - 09/27/2024 11:59 PM EDT [facility] [address] [address] Encounter for screening mammogram for malignant neoplasm of breast Discharge Disposition: Home or Self Care from Last 3 Months Surgical History Surgery Date Site/Laterality Comments ANKLE SURGERY PROCEDURE:ANKLE SURGERY TOTAL KNEE ARTHROPLASTY PROCEDURE:REPLACEMENT TOTAL KNEE BILATERAL LAPAROSCOPIC GASTRIC BANDING PROCEDURE:LAPAROSCOPIC PLACEMENT GASTRIC RESTRICTIVE DEVICE Medical History Medical History Date Comments Diabetes mellitus (CMS/HCC V24, CMS/HCC V28) DX:Diabetes mellitus (HCC) HLD (hyperlipidemia) DX:HLD (hyp erlipidemia) Disease of thyroid gland DX:Dise ase of thyroid gland Family History Medical History Relation Name Comments Breast cancer Mother Cancer Mother Relation Name Status Comments Mother Social History Tobacco Use Types Packs/Day Years Used Date Smoking Tobacco: Never Smokeless Tobacco: Never Alcohol Use Standard Drinks/Week Comments Never 0 (1 standard drink = 0.6 oz pur e alcohol) Comments No Sex and Gender Information Value Date Recorded Sex Assigned at Female 09/07/2024 4:08 PM EDT Legal Sex Female 11:03 AM EST Gender Identity Female 09/07/2024 4:08 PM EDT Sexual Orientation Straight 09/08/2024 9: 39 AM EDT Obstetrics History Para Term AB IAB SAB Ectopic Multiple Livin g Live Births 2 Last Filed Vital Signs Vital Sign Reading Time Taken Comments Blood Pressure 128/61 07/19/2022 3:18 PM EDT Sitting Left arm Pulse 95 07/19/2022 3:18 PM EDT Temperature - - Respiratory Rate - - Oxygen Saturation - - Inhaled Oxygen Concentration - - Weight 74.8 kg (165 lb) 09/27/2024 8:46 AM EDT Height 149.9 cm (4' 11 ) 09/27/2024 8:4 6 AM EDT Body Mass Index 33.33 09/27/2024 8:46 AM EDT Plan of Treatment Upcoming Encounters Date Type Department Care Team (Late st Contact Info) Description 11/05/2024 10:30 AM EDT Office Visit Bariatric Surgery - [address] [place] [address] Ml Woody MD [address] [place] [phone] Health Maintenance Due Date Last Done Comments Pneumococcal Vaccine: 50+ Years (1 of 1 - PCV) 1998 Zoster Vaccines (1 of 2) 1998 DTaP,Tdap,and Td Vaccines (2 - Td or Tdap) 10/19/2021 10/20/2011 Cholesterol Screening (Lipid Panel) 02/05/2022 Falls Risk Assessment 02/05/2022 Hepatitis C Screening 02/05/2022 Medicare Annual Wellness Visit 02/05/2022 Social Influencers of Health Screening 02/05/2022 Depression Screening 03/10/2024 COVID-19 Vaccine ( season) 2024 01/06/2024, 04/21/2023, 08/03/2021, Additional history exists Hypertension/CHF/CAD Annual BMP Blood Test 09/27/2024 Influenza Vaccine (#1) 2024 , 01/02/2023, 02/19/2022, Additional history exists Osteoporosis Screening (Bone Density Screening) 12/27/2031 12/26/2021, 02/19/2019 RSV Immunization Adult Patients Completed 05/18/2024 Breast Cancer Screening Discontinued 09/28/19, 05/28/2023, 12/26/2021, Additional history exists HIB Vaccines Aged Out No longer eligi ble based on patient's age to complete this topic HPV Vaccines Aged Out No longer eligi ble based on patient's age to complete this topic Hepatitis A Vaccines Aged Out No long er eligible based on patient's age to complete this topic Hepatitis B Vaccines Aged Out No long er eligible based on patient's age to complete this topic IPV Vaccines Aged Out No longer eligi ble based on patient's age to complete this topic MMR Vaccines Aged Out No longer eligi ble based on patient's age to complete this topic Meningococcal ACWY Vaccine Aged Out N o longer eligible based on patient's age to complete this topic Meningococcal B Vaccine Aged Out No l onger eligible based on patient's age to complete this topic RSV Immunization Patients Under 20 months Aged Out No longer eligible based on patient's age to complete this topic Varicella Vaccines Aged Out No longer eligible based on patient's age to complete this topic Procedures Procedure Name Priority Date/Time Associated Diagnosis Comments MG MAMMO DIGITAL SCREENING W DALE BILAT Routine 09/27/2024 8:53 AM EDT Encounter for screening mammogram for malignant neoplasm of breast PEGGY DEXA AXIAL SKELETON Routine 12/26/2021 4:30 PM EDT Encounter for screening for osteoporosis from Last 3 Months or Most Recently Relevant to Health Maintenance Results * MG Mammo Digital Screening w Dale bilat (09/27/2024 8:53 AM EDT) Anatomical Region Laterality Modality Breast Bilateral Mammography 09/27/2024 1:30 PM EDT Impressions 09/27/2024 1:32 PM EDT No evidence of breast malignancy. BI-RADS CATEGORY: 1 - NEGATIVE RECOMMENDATION: Screening bilateral mammogram is recommended in 1 year. Mammo Location: [facility], [address] [place] [address], [address], . -------- FINAL REPORT -------- Dictated By: Shanda Calles Dictated Date: 09/27/2024 13:30 ET Assigned Physician: Shanda Calles Reviewed and Electronically Signed By: Shanda Calles Signed Date: 09/27/2024 13:32 ET Workstation ID: [id number] Transcribed By: Self Edit Transcribed Date: 09/27/2024 13:30 ET Narrative 09/27/2024 1:32 PM EDT CLINICAL: 74 years old, Female, routine annual exam. COMPARISON: 05/28/2023, 12/26/2021, 12/01/2020, 11/27/2020 and 11/22/2019 TECHNIQUE: Bilateral MLO and CC views were obtained digitally with 3-D mammogram (digital breast tomosynthesis). Computer-aided detection was utilized in evaluation of this exam (CAD). FINDINGS: There is no evidence of suspicious mass or architectural distortion. No worrisome calcifications are evident. There has been no significant change from prior exam(s). Stable bilateral benign-appearing calcifications. BREAST DENSITY: B - There are scattered areas of fibroglandular density. Procedure Note Shanda Calles MD - 09/27/2024 CLINICAL: 74 years old, Female, routine annual exam. COMPARISON: 05/28/2023, 12/26/2021, 12/01/2020, 11/27/2020 and 11/22/2019 TECHNIQUE: Bilateral MLO and CC views were obtained digitally with 3-Dmammogram (digital breast tomosynthesis). Computer-aided detection wasutilized in evaluation of this exam (CAD). FINDINGS: There is no evidence of suspicious mass or architectural distortion. Noworrisome calcifications are evident. There has been no significantchange from prior exam(s). Stable bilateral benign-appearingcalcifications. BREAST DENSITY: B - There are scattered areas of fibroglandular density. IMPRESSION: No evidence of breast malignancy. BI-RADS CATEGORY: 1 - NEGATIVE RECOMMENDATION: Screening bilateral mammogram is recommended in 1 year. Mammo Location: [facility], [address] [place] [address], [address], . -------- FINAL REPORT -------- Dictated By: Shanda Calles Dictated Date: 09/27/2024 13:30 ET Assigned Physician: Shanda Calles Reviewed and Electronically Signed By: Shanda Calles Signed Date: 09/27/2024 13:32 ET Workstation ID: [id number] Transcribed By: Self Edit Transcribed Date: 09/27/2024 13:30 ET Patrick Allan MD IMG BI PROCEDURES Final Resu lt * PEGGY DEXA AXIAL SKELETON (12/26/2021 4:30 PM EDT) Anatomical Region Laterality Modality Mammography 12/26/2021 11:1 2 AM EDT Narrative 12/26/2021 4:30 PM EDT [facility] Diagnostic Imaging Department [address] [place] [id number] Patient: CINDY HALL Dash FarnsworthB./Age/Sex: 1950 - 71 - F Unit#: [id number] Location/Status: [facility] CLI Mnemonic/Ordering Site: MAMDEXAAX/SPMAM Ordering Physician: PATRICK ALLAN MD Peggy Dexa Axial Skeleton - 12/26/21 - 1150 History: Low estrogen state due to menopause. History fracture. Diabetes. Gastric bypass surgery. Comparison: 02/19/19 Findings: Bone densitometry is performed utilizing dual energy x-ray absorptiometry (DXA) in the Quantivo unit. The lumbar spine and proximal femora are evaluated in the AP projection. The FRAX questionaire was completed. The results indicate low bone mass (osteopenia), with a right femoral neck T- score of -1.9. Z score is -0.3, indicating the patient's bone mineral density is within normal limits relative to age. There has been no statistically significant change. The detailed DEXA report will be mailed to the referring physician's office. DualFemur FRAX: 10-year Probability of Fracture: Major Osteoporotic 18.0 percent Hip 3.8 percent. IMPRESSION: Osteopenia. [id number] Dictating Physician: RADHA ANDREW MD Electronically Signed by: RADHA ANDREW MD Dic Date/Time: 12/26/21 1629 Sign date/Time: 12/26/21 1630 Procedure Note Radha Andrew MD - 02/27/2022 [facility] Diagnostic Imaging Department [address] [place] [address] Patient: CINDY HALL Dash FarnsworthB./Age/Sex: 1950 - 71 - F Unit#: [id number] [facility] Ordering Physician: PATRICK ALLAN MD Peggy Dexa Axial Skeleton - 12/26/21 - 1150 History: Low estrogen state due to menopause. History fracture.Diabetes. Gastric bypass surgery. Comparison: 02/19/19 Findings: Bone densitometry is performed utilizing dual energy x-ray absorptiometry(DXA) in the Quantivo unit. The lumbar spine and proximal femora areevaluated in the AP projection. The FRAX questionaire was completed. The results indicate low bone mass (osteopenia), with a right femoral neckT- score of -1.9. Z score is -0.3, indicating the patient's bone mineraldensity is within normal limits relative to age. There has been no statistically significant change. The detailed DEXA report will be mailed to thereferring physician's office. DualFemur FRAX: year Probability of Fracture: Major Osteoporotic 18.0 percent Hip 3.8 percent. IMPRESSION: Osteopenia. [id number] Dictating Physician: RADHA ANDREW MD Electronically Signed by: RADHA ANDREW MD Dic Date/Time: 12/26/21 1629 Sign date/Time: 12/26/21 1630 Patrick Allan MD IMG BI PROCEDURES Final Resu lt from Last 3 Months or Most Recently Relevant to Health Maintenance Insurance MEDICARE [facility] [place] [id number] Care Teams Downstream Biomanufacturing Technician Relationship Specialty Start Date End Date Patrick Allan MD [address] [place] [id number] PCP - General Internal Medicine 09/27/24
--- OUTSIDE RECORDS SUMMARY | 2024-11-04 12:03 | XMS_ITS | Clinical Summary ---
Author Organization [facility] Address [address] [place] [address] Care Team Providers Care Trouble Tracer Name Role Phone Moe Gao MD Primary Care Provider [phone] Allergies No known active allergies Medications Medication [...] age to complete this topic Care Teams Trouble Tracer Relationship Specialty Start Date End Date Moe Gao MD [address] [facility] [address] [place] [address] PCP - General Internal Medicine 04/26/22
--- OUTSIDE RECORDS SUMMARY | 2024-11-04 12:03 | XMS_ITS | Clinical Summary ---
Author Organization [facility] Address [address] [facility] [address] [place] [address] Phone Care Team Providers Care Laborer Shellfish Processing Name Role Phone Moe Gao MD Primary [...] age to complete this topic Insurance Medicare [facility] Medicare Care Teams Laborer Shellfish Processing Relationship Specialty Start Date End Date Moe Gao MD [address] [place] [address] PCP - General 03/20/20
[2024-11-04 14:00] LABS: Anion Gap 12 (12-20); Blood Urea Nitrogen 18 mg/dL (9-16); Calcium 10.0 mg/dL (8.4-10.2); Carbon Dioxide 28 mmol/L (22-29); Chloride 105 mmol/L (96-108); Estimated Glomerular Filt Rate 39; Potassium 5.0 mmol/L (3.3-5.1); Sodium 140 mmol/L (135-145)
== END 2024-11-04 10:39 | disposition home or self-care (01) ==
LOC: HO.HKASLDS 10:38
PROVIDERS: Visit Provider Internal Medicine Nephrology
DX: I12.9 Hypertensive chronic kidney disease with stage 1 through stage 4 chronic kidney disease, or unspecified chronic kidney disease (principal); N18.31 Chronic kidney disease, stage 3a
CPT/HCPCS: 36415; 80051; 82310; 82565; 84520